=== PATIENT | male | born 1985 | race Caucasian/White ===

== ENCOUNTER 2021-03-20 03:34 | Emergency (ER) | payer OTHER, SELFPAY ==
[2021-03-20 03:35] VITALS: BP 146/80; PULSE 111; RESP 18; TEMP 36.5; O2SAT 100; BMI 21.9
--- NOTE | 2021-03-20 03:55 | RAD_ITS ---
HISTORY: trauma, pain COMPARISON: None FINDINGS: # of images incl. paperwork: 3 XR Hand Min 3 Views: SOFT TISSUES: Fourth digit edema. Mild dorsal wrist edema. No radiodense soft tissue foreign body. No abnormal soft tissue mineralization. OSSEOUS: Nondisplaced fracture of the fourth distal phalanx. No other fracture seen. No dislocation. No erosion or periostitis. No significant osseous proliferation. Joint spacing is preserved. BONE MINERALIZATION: Unremarkable. RAD/Hand Min 3 Views IMPRESSION: Fourth distal phalanx nondisplaced fracture with surrounding edema. Mild dorsal wrist edema without acute osseous finding. at 0447 Reported and signed by: Charbel Monroe MD Electronically Signed: Charbel Monroe MD at 4:46 EDT Tel , Service support ,
--- NOTE | 2021-03-20 03:55 | EX.ED.UPPERE ---
HPI History of Present Illness Chief Complaint: Upper Extremity Injury Informant: patient Narrative Narrative: Patient was at work and had a torque converter landed on his right hand. He has some diffuse soreness. Most of this is more on the medial aspect of the hand and the ring finger tip. He is right-hand dominant. Pressing on it makes it worse holding it still makes it better. No other injury. He also has an abrasion on his palm but that is from another injury several days ago. PFSH PFS Medical History Depression Home Medications Buproban 1 tab PO/SL DAILY 03/20/21 [History Last Taken Unknown] venlafaxine [Effexor] 100 mg PO DAILY 03/20/21 [History Last Taken Unknown] Allergy/AdvReac Type Severity Reaction Status Date / Time SEASONAL Allergy Other Uncoded 03/20/21 03:35 Social History Smoking Status: Never smoker ROS ROS ED Musculoskeletal Musculoskeletal: Reports other Details: See history of present illness. Integumentary Reports Abrasions Neurologic Neurologic: Denies paresthesias or weakness Hematologic/Lymphatic Hematologic/Lymphatic: Denies easy bleeding or easy bruising EXAM Physical Exam Const Vital Signs: 03/20/21 03:35 Temperature 97.7 F L Temperature Source Temporal Pulse Rate 111 H Respiratory Rate 18 Blood Pressure 146/80 H Blood Pressure Mean 102 Pulse Ox 100 Oxygen Delivery Method Room Air Positive well nourished and well developed General Appearance ED: well developed and NAD HEENT normocephalic and atraumatic Resp normal respiratory effort Extremity Extremity Narrative: Patient has a healing abrasion on his right hyperthenar eminence. He has no tenderness of the upper arm, humerus, elbow forearm or wrist. He does have a contusion to the volar medial tip of his right ring finger. No other acute changes are noted. No deformity. Range of motion sensation and capillary refill are intact. Neuro no focal motor deficits and no sensory deficits noted Sensorium / Orientation: alert Motor Exam: muscle tone normal throughout Skin Rashes: no rashes MDM MDM MDM Narrative Medical decision making narrative: Three-view x-ray of the hand reviewed by me shows a distal tuft fracture of his right ring finger. This should heal well. It will be placed in a protective splint. He will have limited use of this hand for up to 6 weeks until there is complete healing. Ice rest elevation Tylenol or Motrin should care for this. Discharge Plan Triage Chief Complaint: Upper Extremity Injury ED Provider: Anselmo Naqvi Dx/Rx/DC Orders Clinical Impression: Closed fracture of tuft of distal phalanx of finger Instructions: ED Fracture, Finger, Closed Prescriptions: No Action venlafaxine [Effexor] 100 mg Tablet 100 mg PO DAILY RF: 0 Buproban 1 tab PO/SL DAILY RF: 0 Stand Alone Forms: Work Status Form Primary Care Provider: Care Physician,No Primary Referrals: Israel Johnston MD [STAFF PHYSICIAN] - 1-2 Weeks Care Physician,No Primary [Primary Care Provider] - Disposition Disposition: Home, Self Care
== END 2021-03-20 04:56 | disposition home or self-care (01) ==
PROVIDERS: Emergency Provider Emergency Medicine
DX: S62.634A Displaced fracture of distal phalanx of right ring finger, initial encounter for closed fracture (principal); F32.9 Major depressive disorder, single episode, unspecified; X58.XXXA Exposure to other specified factors, initial encounter; Z79.899 Other long term (current) drug therapy
CPT/HCPCS: 73130; 99283